=== PATIENT | female | born 1995 | race Hispanic/Latino ===

== ENCOUNTER 2018-11-29 19:35 | Emergency (ER) | payer OTHER ==
[~2018-11-29] VITALS: Ht 165.1 cm; Wt 81.8 kg
[2018-11-29] MEDS ORDERED: GIAN1TAB PO (19:47)
[2018-11-30] MEDS ORDERED: PATA2.5S OP (01:46)
[2018-11-30 01:52] VITALS: BP 141/80
== END 2018-11-30 01:54 | disposition home or self-care (01) ==
LOC: M ED 19:35
DX: H10.13 Acute atopic conjunctivitis, bilateral (principal); Z91.010 Allergy to peanuts; Z79.3 Long term (current) use of hormonal contraceptives; Z97.3 Presence of spectacles and contact lenses

== ENCOUNTER → 2019-09-23 | Outpatient (CLI) | payer OTHER ==
[~2019-09-23] MED LIST: GIAN1TAB PO; PATA2.5S OP
--- NOTE | 2019-09-23 16:22 | REP ---
CHEST, TWO VIEWS: There is no evidence of acute infiltrate. No pleural effusion is seen. The heart is normal in size. The mediastinal silhouette is unremarkable. The visualized osseous structures are intact. IMPRESSION: No acute pulmonary disease. Electronically Signed by Solo Valles MD 09/23/2019 04:25 P
== END ==
LOC: M LRY 15:30
PROVIDERS: ATTEND Physician Assistant
DX: R06.2 Wheezing (principal)
CPT/HCPCS: 71046; 94640; G0463